=== PATIENT | female | born 2000 | race Hispanic/Latino ===

== ENCOUNTER 2020-08-20 10:14 | Emergency (ER) | payer OTHER ==
[2020-08-20 10:38] LABS: #Eosinphils 0.1 thou/uL (0.0-0.7); #Lymphocytes 1.6 thou/uL (1.20-3.40); #Monocytes 0.5 thou/uL (0.11-0.59); #Neutrophils 5.4 thou/uL (1.40-6.50); %Basophils 0.5 % (0.0-1.0); %Eosinophils 1.3 % (0.0-10.0); %Lymphocytes 20.6 % (28.0-48.0); %Neutrophils 71.6 % (31.0-61.0); Hemoglobin 13.1 g/dL (12.0-16.0); Mean Corpuscular HGB CONC 34.1 g/dL (32.0-36.0); Mean Corpuscular Hemoglobin 31.7 pg (25.0-35.0); Mean Platelet Volume 7.9 fL (7.4-10.4); Platelet Count 238 thou/uL (130-400); RBC Distribution Width 11.2 % (11.5-14.5); Red Blood Cell (RBC) Count 4.14 mill/uL (4.00-5.20); White Blood Cell (WBC) Count 7.6 thou/uL (4.8-10.8)
[2020-08-20 10:56] LABS: ALT (SGPT) 9 U/L (8-55); AST (SGOT) 15 U/L (5-34); Albumin 4.2 g/dL (3.5-5.0); Alkaline Phosphatase 48 U/L (40-100); Anion Gap 14 mmol/L (10-20); BUN (Urea Nitrogen) 10 mg/dL (7.0-18.7); Bilirubin, Total 0.4 mg/dL (0.2-1.2); Calc. Creatinine Clearance 0 mL/min (70-130); Calcium 8.9 mg/dL (7.8-10.44); Carbon Dioxide 23 mmol/L (22-29); Chloride 104 mmol/L (98-107); Estimated GFR-MDRD Greater than 90; Globulin 3.1 g/dL (2.4-3.5); Glucose 89 mg/dL (70-105); Potassium 3.7 mmol/L (3.5-5.1); Protein, Total 7.3 g/dL (6.0-8.3); Sodium 137 mmol/L (136-145)
[2020-08-20 12:42] LABS: Bilirubin Negative (Negative); Blood, Urine Negative (Negative); Clarity Clear (Clear); Glucose, Urine (Dipstick) Normal (Negative); Ketone, Urine 20 mg/dL (Negative); Leukocyte Negative Leu/uL (Negative); Nitrite Negative (Negative); Protein, Urine (Dipstick) 10 mg/dL (Neg-Trace); Urobilinogen Normal mg/dL (Less than 2)
[2020-08-20 12:49] LABS: Pregnancy Test - Urine (BHCG) POSITIVE (Negative); Pregu Control Background? CLEAR/WHITE (CLR/WHITE); Pregu Control Bar Appear? YES (CONTROL BAR)
--- NOTE | 2020-08-20 14:22 | ULT ---
FIRST TRIMESTER OBSTETRICAL ULTRASOUND INDICATION: Lower abdominal pain TECHNIQUE: Grayscale, M-mode Doppler, color Doppler and spectral Doppler images were obtained. Imagin g is focused on the clinical indication. Transabdominal examination was performed COMPARISON: No relevant prior studies available. FINDINGS: Uterus: The uterus measured 8.8 x 4.9 x 5.4cm. Intrauterine gestation: Single. Yolk Sac:Present. 3.5 mm Pole :Present heart rate: 111 bpm. Subchorionic Hemorrhage: None. BIOMETRY: The crown-rump length: 0.47 cm. The mean sac diameter: 1.78 cm . The average gestational age by ultrasound is6 weeks and 3 dayswith estimated due date of April 12. The clinical age is6 weeks and 1 daywith estimated due date ofApril 14, 2021. Ovaries: RIGHT OVARY: 2.9 x 1.9 cm. Mass: None. Flow: Normal LEFT OVARY: 2.9 x 1.4 cm. Mass: None. Flow: Normal CUL-DE-SAC: Minimal free fluid in the cul-de-sac IMPRESSION: 1. Single live intrauterine gestation with size and dates as above.
== END 2020-08-20 15:36 | disposition home or self-care (01) ==
LOC: ERS 10:14
DX: O99.891 Other specified diseases and conditions complicating pregnancy (principal); R10.9 Unspecified abdominal pain; Z3A.01 Less than 8 weeks gestation of pregnancy
CPT/HCPCS: 36415; 76856; 80053; 81003; 81025; 83690; 84702; 85025; 86900; 86901; 93976